=== PATIENT | male | born 1965 ===

== ENCOUNTER 2023-07-08 19:12 | Emergency (ER) | payer BC ==
[~2023-07-08] VITALS: Ht 182.9 cm; Wt 120.5 kg
[2023-07-08 19:18] VITALS: BP 137/87; PULSE 112; RESP 12; TEMP 98.9; O2SAT 96
== END 2023-07-08 19:27 ==
LOC: ER 19:13
DX: F10.129 Alcohol abuse with intoxication, unspecified (principal); I10 Essential (primary) hypertension; V89.2XXA Person injured in unspecified motor-vehicle accident, traffic, initial encounter; Y92.89 Other specified places as the place of occurrence of the external cause; Y99.8 Other external cause status
CPT/HCPCS: 99283